=== PATIENT | female | born 2000 | race Caucasian/White ===

== ENCOUNTER 2022-01-07 11:49 | Emergency (ER) | payer OTHER ==
[~2022-01-07] VITALS: Ht 152.4 cm; Wt 77.1 kg
[2022-01-07 12:04] VITALS: BP 122/79
--- NOTE | 2022-01-07 12:11 | ED Lower Extremity ---
General Chief Complaint: Lower Extremity Stated Complaint: FALL/L ANKLE INJ Source: patient Exam Limitations: no limitations History of Present Illness Date Seen by Provider: Jan 07, 2022 Time Seen by Provider: 12:09 Initial Comments To ER with left lateral ankle pain after she inverted the left ankle slipping on some ice about 11 AM. She is ambulatory into the emergency room. Onset: just prior to arrival Severity: moderate Pain/Injury Location: left ankle Method of Injury: twisted Modifying Factors: Worse With Movement Allergies and Home Medications Patient Home Medication List Home Medication List Reviewed: Yes Review of Systems Constitutional: see HPI EENTM: see HPI Respiratory: no symptoms reported Cardiovascular: no symptoms reported Genitourinary: no symptoms reported Musculoskeletal: see HPI Skin: no symptoms reported Psychiatric/Neurological: No Symptoms Reported Physical Exam Vital Signs Vital Signs - First Documented 01/07/22 12:04 Temp 36.4 Pulse 85 Resp 20 B/P (MAP) 122/79 (93) Pulse Ox 98 O2 Delivery Room Air Capillary Refill : Height, Weight, BMI Height: '" Weight: lbs. oz. kg; BMI Method: General Appearance: WD/WN, no apparent distress HEENT: PERRL/EOMI, normal ENT inspection Respiratory: no respiratory distress, no accessory muscle use Hips: bilateral hip non-tender, bilateral hip normal inspection, bilateral hip normal range of motion Legs: bilateral leg non-tender, bilateral leg normal inspection, bilateral leg normal range of motion Knees: bilateral knee non-tender, bilateral knee normal inspection, bilateral knee normal range of motion Ankles: left ankle pain, left ankle soft tissue tenderness, left ankle other (No swelling no erythema no ecchymosis at this time though her injury did happen very recently, less than 1 hour ago. Normal sensation of the toes. No pain in the foot. Palpable dorsalis pedis pulse. No pain over the proximal fibula.) Feet: bilateral foot non-tender, bilateral foot normal inspection, bilateral foot normal range of motion Neurologic/Psychiatric: alert, normal mood/affect, oriented x 3 Skin: normal color, warm/dry Progress/Results/Core Measures Results/Orders My Orders Orders - RAUL PERKINS APRN Ankle, Left, 3 Views (01/07/22 12:07) Vital Signs/I&O 01/07/22 12:04 Temp 36.4 Pulse 85 Resp 20 B/P (MAP) 122/79 (93) Pulse Ox 98 O2 Delivery Room Air Departure Impression Primary Impression: Sprain and strain of ankle Disposition: 01 HOME, SELF-CARE Condition: Stable Departure-Patient Inst. Decision time for Depature: 12:10 Referrals: ARI FUENTES (PCP) Primary Care Physician Patient Instructions: Ankle Sprain (DC) Add. Discharge Instructions: 1. Return to ER for any concerns. Follow-up with your doctor next week. Tylenol and ibuprofen for pain. Ice pack to the area. Elevate the foot is much as possible for the next 2 days. All discharge instructions reviewed with patient and/or family. Voiced understanding. Work/School Note: Work Release Form Date Seen in the Emergency Department: Jan 07, 2022 Return to Work: Feb 06, 2022 RAUL PERKINS APRN Jan 07, 2022 12:11
--- NOTE | 2022-01-07 13:29 | Diagnostic Imaging Report ---
EXAMINATION: Left ankle 3 views HISTORY: Ankle pain COMPARISON: None available. FINDINGS: There is mild bimalleolar swelling. No fracture. Mortise is intact. IMPRESSION: 1. Bimalleolar swelling without acute fracture. Dictated by: Dictated on workstation # [id number]
== END 2022-01-07 12:57 | disposition home or self-care (01) ==
LOC: ER 11:52
DX: S93.402A Sprain of unspecified ligament of left ankle, initial encounter (principal); X50.1XXA Overexertion from prolonged static or awkward postures, initial encounter
CPT/HCPCS: 73610